=== PATIENT | male | born 1970 | race American Indian/Alaskan Native ===

== ENCOUNTER 2020-03-07 21:10 | Emergency (ER) | payer MEDICARE ==
--- NOTE | 2020-03-07 21:23 | Emergency Department Report ---
Blank Doc - Documentation Documentation: 50-year-old female that was sent by PCP for bilatearl feet swelling, lesions, and redness with warm to touch. This initial assessment/diagnostic orders/clinical plan/treatment(s) is/are subject to change based on patient's health status, clinical progression and re- assessment by fellow clinical providers in the ED. Further treatment and workup at subsequent clinical providers discretion. Patient/guardians urged not to elope from the ED as their condition may be serious if not clinically assessed and managed. Initial orders include: 1- Patient sent to MAIN ED for further evaluation and treatment 2- labs
[2020-03-07 21:40] LABS: Basophils % (Auto) 0.6 % (0.0-1.8); Eosinophils # (Auto) 0.1 K/mm3 (0.0-0.4); Eosinophils % (Auto) 0.8 % (0.0-4.3); Hematocrit 45.8 % (35.5-45.6); Hemoglobin 15.2 gm/dl (11.8-15.2); Lymphocytes # (Auto) 2.9 K/mm3 (1.2-5.4); Lymphocytes % (Auto) 36.4 % (13.4-35.0); Mean Corpuscular HGB Conc 33 % (32-34); Mean Corpuscular Volume 78 fl (84-94); Monocytes # (Auto) 1.1 K/mm3 (0.0-0.8); Monocytes % (Auto) 13.3 % (0.0-7.3); Platelet Count 328 K/mm3 (140-440); Red Blood Count 5.87 M/mm3 (3.65-5.03); Red Cell Distribution Width 15.9 % (13.2-15.2)
[2020-03-07 21:52] LABS: BUN/Creatinine Ratio 10; Blood Urea Nitrogen 9 mg/dL (9-20); Calcium 9.7 mg/dL (8.4-10.2); Hemolysis Index 5
--- NOTE | 2020-03-08 01:30 | Emergency Department Report ---
ED General Adult HPI - General Chief complaint: Wound/Laceration Stated complaint: FUNUS INFECTION ON FOOT PUI?: No Time Seen by Provider: 03/07/20 21:23 Source: patient Mode of arrival: Ambulatory Limitations: Physical Limitation - History of Present Illness Initial comments: Patient is a 50-year-old female that presents emergency room with complaints of an infection in her feet, nausea, weakness, lightheadedness and cold int olerance. Patient states that the infection in her feet started 1 month ago. Patient states the symptoms are worsening. Patient states she got of purulent discharge from her open sores on her feet. Patient states that the swelling and pain started 1 week ago and is worsening. Patient states that the nausea, weakness, lightheadedness started 4 days ago. Patient states that her cold intolerance started on and off for 4 weeks and is secondary to her iron being low. Patient states that her primary care sent to the hospital for further evaluation and possible admission. Patient states that she is in a lot of pain and the pain is a 10 out of 10. Patient states the pain is better with rest and worse with movement. Patient denies chest pain. Patient denies shortness of breath. Patient denies fever and chills. Patient denies recent travel. Patient denies recent international travel. Patient denies exposure to the novel coronavirus. Patient denies sick contacts. Patient denies fever and chills. Patient denies cough. Patient denies diarrhea. Patient denies coming in contact with anybody with symptoms of the novel coronavirus. -: Sudden Severity scale (0 -10): 10 Quality: stabbing Consistency: constant Improves with: rest Worsens with: movement Associated Symptoms: malaise, weakness, other. denies: confusion, chest pain, cough, diaphoresis, fever/chills, headaches, loss of appetite, rash, seizure, shortness of breath, syncope - Related Data Previous Rx's Medication Instructions Recorded Last Taken Type HYDROcodone/APAP 7.5-325 [[employer] 1 each PO Q6HR PRN #10 tablet 03/08/20 Unknown Rx 7.5/325] Sulfamethoxazole/Trimethoprim 1 each PO BID 10 Days #20 tablet 03/08/20 Unknown Rx [Bactrim DS TAB] Allergies Allergy/AdvReac Type Severity Reaction Status Date / Time codeine Allergy Unknown Verified 03/07/20 21:20 levofloxacin [From Levaquin] Allergy Unknown Verified 03/07/20 21:20 morphine Allergy Unknown Verified 03/07/20 21:20 Penicillins Allergy Unknown Verified 03/07/20 21:20 ED Review of Systems ROS: Stated complaint: FUNUS INFECTION ON FOOT Other details as noted in HPI Constitutional: malaise, weakness. denies: chills, fever Eyes: denies: eye pain, eye discharge, vision change ENT: denies: ear pain, throat pain Respiratory: denies: cough, shortness of breath, wheezing Cardiovascular: denies: chest pain, palpitations Endocrine: no symptoms reported Gastrointestinal: nausea. denies: abdominal pain, vomiting, diarrhea Genitourinary: denies: urgency, dysuria Musculoskeletal: denies: back pain, joint swelling, arthralgia Skin: as per HPI, lesions. denies: rash Neurological: as per HPI, weakness. denies: headache, paresthesias Psychiatric: denies: anxiety, depression Hematological/Lymphatic: denies: easy bleeding, easy bruising ED Past Medical Hx - Past Medical History Previous Medical History?: Yes Hx Hypertension: Yes Hx Arthritis: Yes Additional medical history: deaf,sleep apnea, prediabetes - Surgical History Past Surgical History?: Yes - Family History Family history: no significant - Social History Smoking Status: Never Smoker Substance Use Type: None - Medications Home Medications: Home Medications Medication Instructions Recorded Confirmed Last Taken Type HYDROcodone/APAP 7.5-325 [[employer] 1 each PO Q6HR PRN #10 tablet 03/08/20 Unknown Rx 7.5/325] Sulfamethoxazole/Trimethoprim 1 each PO BID 10 Days #20 tablet 03/08/20 Unknown Rx [Bactrim DS TAB] ED Physical Exam - General Limitations: Physical Limitation, Other (Patient is deaf) General appearance: alert, in no apparent distress - Head Head exam: Present: atraumatic, normocephalic - Eye Eye exam: Present: normal appearance, PERRL Pupils: Present: normal accommodation - ENT ENT exam: Present: mucous membranes moist - Neck Neck exam: Present: normal inspection - Respiratory Respiratory exam: Present: normal lung sounds bilaterally. Absent: respiratory distress, wheezes, rales - Cardiovascular Cardiovascular Exam: Present: regular rate, normal rhythm. Absent: systolic murmur, diastolic murmur, rubs, gallop - GI/Abdominal GI/Abdominal exam: Present: soft, normal bowel sounds - Rectal Rectal exam: Present: deferred - Extremities Exam Extremities exam: Present: full ROM, tenderness, pedal edema, calf tenderness - Back Exam Back exam: Present: normal inspection, full ROM - Neurological Exam Neurological exam: Present: alert, oriented X3 - Psychiatric Psychiatric exam: Present: normal affect, normal mood - Skin Skin exam: Present: warm, dry, normal color, erythema, other (Open wounds on the feet along with redness and swelling. Patient's feet are tender to touch. Purulent discharge noted from wounds on feet.). Absent: rash ED Course Vital Signs 03/07/20 03/08/20 03/08/20 21:13 01:33 01:34 Temperature 98.3 F 99.1 F Pulse Rate 114 H 93 H 98 H Respiratory 20 20 20 Rate Blood Pressure 160/93 Blood Pressure 141/76 [Right] O2 Sat by Pulse 97 98 97 Oximetry 03/08/20 03/08/20 03/08/20 01:46 01:48 02:00 Temperature Pulse Rate 118 H 96 H Respiratory 23 20 24 Rate Blood Pressure 141/76 141/76 Blood Pressure [Right] O2 Sat by Pulse 95 100 96 Oximetry 03/08/20 02:15 Temperature Pulse Rate 92 H Respiratory 23 Rate Blood Pressure 150/81 Blood Pressure [Right] O2 Sat by Pulse 96 Oximetry - Reevaluation(s) Reevaluation #1: I discussed all results and clinical findings with patient. I discussed plan of care with patient. Patient agrees with plan of care. Patient is stable for discharge. Patient will be discharged home. Patient given discharge instructions. Patient voiced understanding of discharge instructions. 03/08/20 05:31 ED Medical Decision Making - Lab Data Result diagrams: 03/07/20 21:24 03/07/20 21:24 - EKG Data -: EKG Interpreted by De EKG shows normal: sinus rhythm, axis, intervals, QRS complexes, ST-T waves Rate: normal - Radiology Data Radiology results: report reviewed DUPLEX DOPPLER LOWER EXTREMITY VEINS, BILATERAL INDICATION / CLINICAL INFORMATION: edema and leg pain. TECHNIQUE: Duplex doppler imaging was performed through the veins of both lower extremities using venous compression and other maneuvers. COMPARISON: None available. FINDINGS: Right Common Femoral vein: Negative. Right Femoral vein: Negative. Right Popliteal vein: Negative. Right Calf veins: Negative. Left Common Femoral vein: Negative. Left Femoral vein: Negative. Left Popliteal vein: Negative. Left Calf veins: Negative. Additional findings: None. IMPRESSION: 1. No sonographic evidence for DVT in either lower extremity. CT HEAD WITHOUT CONTRAST INDICATION / CLINICAL INFORMATION: Pt complains of weakness.. TECHNIQUE: All CT scans at this location are performed using CT dose reduction for ALARA by means of automated exposure control. COMPARISON: None available. FINDINGS: HEMORRHAGE: None. EXTRA-AXIAL SPACES: Normal in size and morphology for the patient's age. VENTRICULAR SYSTEM: Normal in size and morphology for the patient's age. CEREBRAL PARENCHYMA: No significant abnormality. No acute territorial infarct. MIDLINE SHIFT OR HERNIATION: None. CEREBELLUM / BRAINSTEM: No significant abnormality. ORBITS: Normal as visualized. SOFT TISSUES of HEAD: No significant abnormality. CALVARIUM: No significant abnormality. PARANASAL SINUSES / MASTOID AIR CELLS: Normal as visualized. ADDITIONAL FINDINGS: None. IMPRESSION: 1. No acute intracranial abnormality. - Medical Decision Making Patient is a 50-year-old female that presents emergency room with multiple complaints. Patient has difficulty making with secondary to patient being deaf. Patient stated she was having infection of her feet and lower extremities, weakness, lightheadedness, nausea and edema of the lower extremities. Patient had a head CT for the weakness and it was negative for acute finding. Patient had an ultrasound of the lower extremities to rule out a DVT and her ultrasound was negative for DVT. Patient had labs done which were essentially unremarkable except fot hyperglycemia. Patient stable for discharge. Patient not require further emergency services or inpatient care. Patient discharged home. Patient given discharge instructions. - Differential Diagnosis weakness, lightheadedness, cellulitis, DVT, swelling Critical Care Time: No Critical care attestation.: If time is entered above; I have spent that time in minutes in the direct care of this critically ill patient, excluding procedure time. ED Disposition Clinical Impression: Swelling of lower extremity, Weakness, Nausea, Light-headedness, Hyperglycemia Cellulitis Qualifiers: Site of cellulitis: extremity Site of cellulitis of extremity: lower extremity Laterality: unspecified laterality Qualified Code(s): L03.119 - Cellulitis of un specified part of limb Lower extremity pain Qualifiers: Laterality: bilateral Qualified Code(s): M79.604 - Pain in right leg Disposition: TO HOME OR SELFCARE Is pt being admited?: No Does the pt Need Aspirin: No Condition: Stable Instructions: Cellulitis (ED), Acute Nausea and Vomiting (ED), Leg Edema (ED), Lightheadedness (ED) Additional Instructions: Patient to follow-up with primary care in 2 to 3 days. Patient to rest. Patient to elevate lower extremities. Patient to increase water. Patient to avoid strenuous exercise or heavy lifting until cleared by primary care. Patient to take Tylenol or ibuprofen as needed for pain. Patient to take meds as directed. Patient to return to the ER if condition worsens, changes or new symptoms arise. Prescriptions: Sulfamethoxazole/Trimethoprim [Bactrim DS TAB] 1 each PO BID 10 Days #20 tablet HYDROcodone/APAP 7.5-325 [[employer] 7.5/325] 1 each PO Q6HR PRN #10 tablet PRN Reason: Pain Referrals: JAKE FLOWERS [Other] - 2-3 Days Time of Disposition: 05:29
--- NOTE | 2020-03-08 02:45 | Cat Scan Report ---
CT HEAD WITHOUT CONTRAST INDICATION / CLINICAL INFORMATION: Pt complains of weakness.. TECHNIQUE: All CT scans at this location are performed using CT dose reduction for ALARA by means of automated e xposure control. COMPARISON: None available. FINDINGS: HEMORRHAGE: None. EXTRA-AXIAL SPACES: Normal in size and morphology for the patient's age. VENTRICULAR SYSTEM: Normal in size and morphology for the patient's age. CEREBRAL PARENCHYMA: No significant abnormality. No acute territorial infarct. MIDLINE SHIFT OR HERNIATION: None. CEREBELLUM / BRAINSTEM: No significant abnormality. ORBITS: Normal as visualized. SOFT TISSUES of HEAD: No significant abnormality. CALVARIUM: No significant abnormality. PARANASAL SINUSES / MASTOID AIR CELLS: Normal as visualized. ADDITIONAL FINDINGS: None. IMPRESSION: 1. No acute intracranial abnormality. Signer Name: Arturo Oreilly MD Signed: 03/08/2020 2:41 AM Workstation Name: [id number]
[2020-03-08 03:33] VITALS: BP 150/81
[2020-03-08] MEDS ORDERED: ONDANSETRON 4 MG/2 ML INJ IV ONE (03:36)
[2020-03-08] MEDS ORDERED: HYDROmorphone 1 MG/1 ML INJ IV ONE (03:36)
--- NOTE | 2020-03-08 05:05 | Vascular Lab Report ---
DUPLEX DOPPLER LOWER EXTREMITY VEINS, BILATERAL INDICATION / CLINICAL INFORMATION: edema and leg pain. TECHNIQUE: Duplex doppler imaging was performed through the veins of both lower extremities using venous katerina donavon and other maneuvers. COMPARISON: None available. FINDINGS: Right Common Femoral vein: Negative. Right Femoral vein: Negative. Right Popliteal vein: Negative. Right Calf veins: Negative. Left Common Femoral vein: Negative. Left Femoral vein: Negative. Left Popliteal vein: Negative. Left Calf veins: Negative. Additional findings: None. IMPRESSION: 1. No sonographic evidence for DVT in either lower extremity. Signer Name: Arturo Oreilly MD Signed: 03/08/2020 5:01 AM Workstation Name: [id number]
[2020-03-08] MEDS ORDERED: HEPARIN 10,000 UNITS/10 ML VIAL IV ONE (05:08)
[2020-03-08] MEDS ORDERED: HEPARIN/ 0.45% NACL DRIP 25,000 UNIT/500 ML BAG IV SCH (06:00)
== END 2020-03-08 06:05 | disposition home or self-care (01) ==
LOC: EDSEX → ED 21:10
DX: L03.119 Cellulitis of unspecified part of limb (principal); R22.40 Localized swelling, mass and lump, unspecified lower limb; R11.0 Nausea; R53.1 Weakness; R42 Dizziness and giddiness; R73.9 Hyperglycemia, unspecified; I10 Essential (primary) hypertension; M19.91 Primary osteoarthritis, unspecified site; Z79.899 Other long term (current) drug therapy; Z88.0 Allergy status to penicillin; Z88.8 Allergy status to other drugs, medicaments and biological substances
CPT/HCPCS: 36415; 70450; 80048; 83880; 85025; 93005; 93970; 96374; 96375; 99284; J1170; J2405